=== PATIENT | male | born 1970 | race Caucasian/White ===

== ENCOUNTER 2021-09-07 04:53 | Inpatient (IN) | payer SELFPAY ==
[~2021-09-07] VITALS: Ht 182.9 cm; Wt 173.0 kg
[~2021-09-07 04:53] MED LIST: AZIT250 PO; Amoxicillin500 MG PO; CEPH500 PO; GUAPHELA PO
[2021-09-07 06:07] LABS: Hematocrit 47.6 % (37.0-53.0); Hemoglobin 15.3 g/dL (13.5-17.5); Mean Corpuscular HGB 30.4 pg (26.0-34.0); Mean Corpuscular HGB Conc 32.1 g/dL (31.5-36.5); Mean Corpuscular Volume 95 fL (80-100); Mean Platelet Volume 9.3 fL (9.1-12.4); NRBC ABSOLUTE 0.03 K/mm3 (0.00-0.02); NRBC Auto 0.4 /100 WBC (0.0-0.2); Platelet Count 328 K/mm3 (150-400); RDW Coefficient Variation 12.6 % (11.7-14.2); RDW Standard Deviation 43.7 fL (35.1-46.3); Red Blood Cell Count 5.03 M/mm3 (4.30-5.90); White Blood Cell Count 7.93 K/mm3 (4.00-11.30)
[2021-09-07 06:34] LABS: Alanine Aminotransfer (ALT/SGP 29 U/L (12-78); Albumin, Blood 2.6 g/dL (3.4-5.0); Albumin/Globulin Ratio 0.5 (0.8-1.8); Alk Phos 68 U/L (50-136); Anion Gap 6 mmol/L (6-16); Aspartate Aminotrans (AST/SGOT 43 U/L (12-37); Bilirubin, Total 0.8 mg/dL (0.1-1.0); Blood Urea Nitrogen 30 mg/dL (8-24); Bun/Creatinine Ratio 33.6 (12.0-20.0); CO2, Blood 29 mmol/L (21-32); Calcium, Blood 8.8 mg/dL (8.5-10.1); Chloride, Blood 106 mmol/L (98-108); Creatinine, Blood 0.89 mg/dL (0.60-1.20); Globulin, Blood 4.9 g/dL (2.2-4.0); Glomerular Filtration Rate >60 (60-); Glucose, Blood 121 mg/dL (70-99); Potassium, Blood 3.7 mmol/L (3.5-5.5); Sodium, Blood 141 mmol/L (136-145); Total Protein, Blood 7.5 g/dL (6.4-8.2); Troponin I <0.015 ng/mL (0.000-0.040)
[2021-09-07 06:47] LABS: BAND PERCENT MAN 2 % (0-8); BASOPHILS PERCENT MAN 0 % (0-2); EOSINOPHILS ABSOLUTE MAN 0.15 K/mm3 (0.00-0.68); EOSINOPHILS PERCENT MAN 2 % (0-6); LYMPHOCYTES ABSOLUTE MAN 1.18 K/mm3 (0.84-5.20); LYMPHOCYTES PERCENT MAN 15 % (21-46); MONOCYTES ABSOLUTE MAN 0.55 K/mm3 (0.16-1.47); MONOCYTES PERCENT MAN 7 % (4-13); MYELOCYTE ABSOLUTE MAN 0.07 K/mm3 (0.00-0.00); MYELOCYTE PERCENT MAN 1 % (0-0); NEUTROPHILS ABSOLUTE MAN 5.94 K/mm3 (1.96-9.15); SEG NEUTROPHILS PERCENT MAN 73 % (41-73); TOTAL CELLS COUNTED 100
--- NOTE | 2021-09-07 12:14 | NUR ---
PT IS NEW ADMISSION FROM ER THIS MORING AT 0730,AAOX4, DX OF [place],PT ON OXIMEZEIR @ 10L N/C,WITH SAT @ [phone], PT DESAT WITH ACTIVITY,JUST LIKE TRYING TO GET UP AND USE HIS URINAL.PT ENCOURAGED TO STAY IN BED USE HIS URINAL AND NOT TO GET OUT OF BED TO BR WITHOUT 02.PT VERBALISE UNDERSTANDING. HE IS MORBID OBESE, INTACT SKIN,CONTINENT OF B/B, NO MED HX, NKA,PT ORIENTED TO ROOM AND CALL LIGHT, TOLERATING MEDS AND CARE,CALL LIGHT WITHIN REACH.
--- NOTE | 2021-09-07 18:12 | NUR ---
PT AAOX4, NO ACUTE DISTRESS NOTED, OUT OF BED SITED IN CHAIR, VISITED,[facility], PO FLIUDS ENCOURAGED, DENIES PAIN,CONT ON 02 VIA N/C 10L,CALL LIGHT IN PLACE WILL CONT TO MONITOR.
--- NOTE | 2021-09-08 05:21 | NUR ---
SHIFT SUMMARY PT IS A 51 Y/O MALE, ADMITTED FOR COVID-19. HE IS A&O X 4, INDEPENDENT IN THE ROOM. HE IS ON 10L VIA OXIMIZER, SATTING 90-92%. TELE SHOWED SB IN THE 50S. VITAL SIGNS OTHERWISE STABLE. NO C/O ACUTE PAIN OR NAUSEA. NO OTHER ACUTE CHANGES IN PT CONDITION NOTED DURING THE NIGHT. WILL CONTINUE TO MONITOR AND TREAT PER EMAR UNTIL HAND OFF TO DAY SHIFT RN.
[2021-09-08 05:46] LABS: Hematocrit 44.8 % (37.0-53.0); Hemoglobin 14.5 g/dL (13.5-17.5); Mean Corpuscular HGB 30.9 pg (26.0-34.0); Mean Corpuscular HGB Conc 32.4 g/dL (31.5-36.5); Mean Corpuscular Volume 95 fL (80-100); Mean Platelet Volume 9.4 fL (9.1-12.4); NRBC ABSOLUTE 0.02 K/mm3 (0.00-0.02); NRBC Auto 0.2 /100 WBC (0.0-0.2); Platelet Count 366 K/mm3 (150-400); RDW Coefficient Variation 12.3 % (11.7-14.2); RDW Standard Deviation 43.3 fL (35.1-46.3); White Blood Cell Count 9.12 K/mm3 (4.00-11.30)
[2021-09-08 06:24] LABS: Alanine Aminotransfer (ALT/SGP 32 U/L (12-78); Albumin, Blood 2.5 g/dL (3.4-5.0); Albumin/Globulin Ratio 0.5 (0.8-1.8); Alk Phos 62 U/L (50-136); Anion Gap 5 mmol/L (6-16); Aspartate Aminotrans (AST/SGOT 37 U/L (12-37); Bilirubin, Total 0.8 mg/dL (0.1-1.0); Blood Urea Nitrogen 25 mg/dL (8-24); Bun/Creatinine Ratio 27.6 (12.0-20.0); CO2, Blood 31 mmol/L (21-32); Calcium, Blood 8.7 mg/dL (8.5-10.1); Chloride, Blood 105 mmol/L (98-108); Creatinine, Blood 0.91 mg/dL (0.60-1.20); Ferritin, Serum 212 ng/mL (26-388); Globulin, Blood 4.8 g/dL (2.2-4.0); Glomerular Filtration Rate >60 (60-); Glucose, Blood 110 mg/dL (70-99); Potassium, Blood 3.9 mmol/L (3.5-5.5); Sodium, Blood 141 mmol/L (136-145); Total Protein, Blood 7.3 g/dL (6.4-8.2)
--- NOTE | 2021-09-08 11:40 | NUR ---
PT RECIEVED THIS MORNING AAOX4, NO DISTRESS NOTED, VITALS WNL, DENIES PAIN,ADEQUATE APPETITE FOR BREAKFAST AND TOLERATED AM MEDS,OUT OF BED CHAIR, PT STATES HE FEELS BETTER THAN TODAY THAN YESTERDAY.CONT ON OXIMETER 10L VIA N/C, NEEDS MET NEEDED,CALL LIGHT WITHIN REACH, WILL CONT TO MONITOR.
--- NOTE | 2021-09-08 18:32 | NUR ---
PT AAOX3, NO ACUTE DISTRESS NOTED, STAYED IN CHAIR MOST PART OF SHIFT, SCANNED POSITIVE FOR PE IN LT LUNG, CN UPDATED PT AND OF DX. PT PRESENTLY ON 5L VIA OXIMIXER, WITH SATURATIONS AT 94%.PT REQUESTED SLICED APPLES, BROUGHT IN FROM [facility].CALL LIGHT WITHIN REACH, WILL CONTINUE TO MONITOR.
--- NOTE | 2021-09-09 04:43 | NUR ---
SHIFT SUMMARY PT IS A 51 Y/O MALE, ADMITTED FOR COVID-19 AND CURRENTLY IN ENHANCED PRECAUTIONS. HE IS A&O X 4, INDEPENDENT IN THE ROOM. ON 5L VIA HIGH FLOW NC, SATTING 89-92%. TELE SHOWED SB IN THE 50S. VITAL SIGNS OTHERWISE STABLE. NO C/O PAIN, NAUSEA OR ACUTE SOB. NO ACUTE CHANGES IN PT CONDITION NOTED DURING THE NIGHT. WILL CONTINUE TO MONITOR AND TREAT PER EMAR UNTIL HAND OFF TO DAY SHIFT RN.
[2021-09-09 05:12] LABS: Hemoglobin 14.6 g/dL (13.5-17.5); Mean Corpuscular HGB 30.7 pg (26.0-34.0); Mean Corpuscular HGB Conc 32.4 g/dL (31.5-36.5); Mean Corpuscular Volume 95 fL (80-100); Mean Platelet Volume 9.1 fL (9.1-12.4); Platelet Count 393 K/mm3 (150-400); RDW Coefficient Variation 12.4 % (11.7-14.2); RDW Standard Deviation 43.5 fL (35.1-46.3); Red Blood Cell Count 4.75 M/mm3 (4.30-5.90); White Blood Cell Count 11.07 K/mm3 (4.00-11.30)
[2021-09-09 05:44] LABS: Alanine Aminotransfer (ALT/SGP 38 U/L (12-78); Albumin, Blood 2.5 g/dL (3.4-5.0); Albumin/Globulin Ratio 0.6 (0.8-1.8); Alk Phos 58 U/L (50-136); Anion Gap 5 mmol/L (6-16); Aspartate Aminotrans (AST/SGOT 42 U/L (12-37); Bilirubin, Total 0.9 mg/dL (0.1-1.0); Blood Urea Nitrogen 24 mg/dL (8-24); Bun/Creatinine Ratio 26.8 (12.0-20.0); CO2, Blood 32 mmol/L (21-32); Calcium, Blood 8.9 mg/dL (8.5-10.1); Chloride, Blood 105 mmol/L (98-108); Ferritin, Serum 205 ng/mL (26-388); Globulin, Blood 4.2 g/dL (2.2-4.0); Glomerular Filtration Rate >60 (60-); Glucose, Blood 103 mg/dL (70-99); Potassium, Blood 4.4 mmol/L (3.5-5.5); Sodium, Blood 142 mmol/L (136-145); Total Protein, Blood 6.7 g/dL (6.4-8.2)
[2021-09-09] MEDS ORDERED: DEXA6 PO (15:03)
[2021-09-09] MEDS ORDERED: XARELTO15 MG PO (15:04)
[2021-09-09] MEDS ORDERED: XARELTO20 MG PO (15:04)
--- NOTE | 2021-09-09 16:46 | NUR ---
SUMMARY/DISCHARGE PT DISCHARGED TO HOME WITH OXYGEN, PT AND SPOUSE VERBALIZED UNDERSTANDING OF DISCHARGE INSTRUCTIONS REGARDING MEDS AND FOLLOW UP, PT TAKEN OUT VIA WHEELCHAIR
== END 2021-09-09 16:08 | disposition home or self-care (01) | DRG 177 ==
LOC: ER 04:53 → MEDS 06:23 → ENPENDDIS 09-09 14:46 → MEDS 09-09 16:08
PROVIDERS: Internal Medicine; Student in an Organized Health Care Education/Training Program; ADMIT Family Medicine
PROC: 8E0ZXY6 Isolation (ICD-10-PCS; principal; 2021-09-07)
PROC: XW033E5 Introduction of Remdesivir Anti-infective into Peripheral Vein, Percutaneous Approach, New Technology Group 5 (ICD-10-PCS; 2021-09-07)
PROC: 3E0333Z Introduction of Anti-inflammatory into Peripheral Vein, Percutaneous Approach (ICD-10-PCS; 2021-09-07)
DX: U07.1 COVID-19 (principal); J12.82 Pneumonia due to coronavirus disease 2019; J96.01 Acute respiratory failure with hypoxia; I26.99 Other pulmonary embolism without acute cor pulmonale; Z68.43 Body mass index [BMI] 50.0-59.9, adult; R79.1 Abnormal coagulation profile; Z28.21 Immunization not carried out because of patient refusal; E66.01 Morbid (severe) obesity due to excess calories; Z98.84 Bariatric surgery status
CPT/HCPCS: 36415; 71045; 71260; 80053; 82728; 84484; 85025; 85027; 85379; 86140; 93005; 93010; 94761; 94762; 96374; 99285-25; A9270; J1100; J1650; J7050; Q9967